=== PATIENT | male | born 1975 | race American Indian/Alaskan Native ===

== ENCOUNTER 2019-06-24 08:30 | Emergency (ER) | payer OTHER ==
[~2019-06-24] VITALS: Ht 177.8 cm; Wt 76.2 kg
[~2019-06-24 08:30] MED LIST: BUSPIRONE HCL15 MG PO; CRUTCH1 EACH; NAPROSYN500 MG PO; RISPERDAL1 MG PO
[2019-06-24] MEDS ORDERED: WELLBUTRIN SR150 MG PO (08:50)
== END 2019-06-24 09:52 | disposition home or self-care (01) ==
LOC: ED 08:30
DX: Z00.8 Encounter for other general examination (principal); F17.200 Nicotine dependence, unspecified, uncomplicated; F32.9 Major depressive disorder, single episode, unspecified; F20.9 Schizophrenia, unspecified; Z91.018 Allergy to other foods; Z79.899 Other long term (current) drug therapy
CPT/HCPCS: 80053; 80176; 81001; 84443; 85025; 99284; G0480

== ENCOUNTER 2025-02-16 05:24 | Emergency (ER) | payer OTHER ==
[~2025-02-16] VITALS: Ht 177.8 cm; Wt 85.0 kg
[~2025-02-16 05:24] MED LIST changes: +WELLBUTRIN SR150 MG PO
[2025-02-16] MEDS ORDERED: THIAMINE HCL 200 MG/2 ML VIAL IV ONE (05:45)
[2025-02-16] MEDS ORDERED: LACTATED RINGER'S 1,000 ML IV ONE (05:45)
[2025-02-16] MEDS ORDERED: FOLIC ACID 1 MG/0.2 ML ML IV ONE (05:45)
[2025-02-16] MEDS ORDERED: FAMOTIDINE 20 MG/ 2 ML VIAL IV ONE (05:45)
[2025-02-16] MEDS ORDERED: ondansetron HCL 4 MG/2 ML VIAL IV ONE (05:45)
[2025-02-16 05:51] LABS: BASOPHILS 1.4 % (0-2); EOSINOPHILS 3.2 % (0-6); HEMATOCRIT 41.9 % (35.0-50.0); HEMOGLOBIN 14.6 g/dL (12.0-18.0); LYMPHOCYTES 13.3 % (24-44); MCH 32.1 (27-36); MCV 91.8 fl (81-99); MONOCYTES 10.6 % (0-12); NEUTROPHILS 71.5 % (39-80); PLATELET COUNT 302 K/uL (140-440); RBC 4.56 M/ul (4.3-5.7); RDW 13.7 (10.5-15.0)
[2025-02-16 06:09] LABS: ALBUMIN 3.3 g/dL (3.4-5.0); ALBUMIN/GLOBULIN RATIO 0.92 (1.1-2.4); ANION GAP 10.2 (7-21); BILIRUBIN, TOTAL 0.4 mg/dL (0.2-1.0); CALCIUM 8.1 mg/dL (8.5-10.1); CREATININE, SERUM 1.2 mg/dL (0.70-1.30); MAGNESIUM 2.4 mg/dL (1.8-2.4); POTASSIUM 3.2 mmol/L (3.5-5.1); PROTEIN, TOTAL 6.9 g/dL (6.4-8.2)
[2025-02-16 06:14] LABS: INR 1.21 (0.80-1.30); PROTIME 14.6 Sec (11.2-14.2)
[2025-02-16] MEDS ORDERED: PEPCID20 MG PO (06:47)
[2025-02-16] MEDS ORDERED: SODIUM CHLORIDE 0.9% 1,000 ML IV ONE (07:30)
[2025-02-16 09:04] VITALS: BP 94/68
== END 2025-02-16 09:07 | disposition home or self-care (01) ==
LOC: ED 05:24
PROVIDERS: Internal Medicine
DX: F10.129 Alcohol abuse with intoxication, unspecified (principal); R10.12 Left upper quadrant pain; F17.200 Nicotine dependence, unspecified, uncomplicated; Z91.09 Other allergy status, other than to drugs and biological substances
CPT/HCPCS: 36415; 51798; 71045; 80053; 80307; 83690; 83735; 85025; 85610; 96361; 96374; 96375; 99284-25; G0480; J2405; J3411; J7030; J7121

== ENCOUNTER 2025-07-14 09:13 | Emergency (ER) | payer OTHER ==
[~2025-07-14] VITALS: Ht 177.8 cm; Wt 77.0 kg
[~2025-07-14 09:13] MED LIST changes: +PEPCID20 MG PO
[2025-07-14 09:45] LABS: CORONAVIRUS COVID-19 AG NEGATIVE (NEGATIVE)
[2025-07-14] MEDS ORDERED: ZITHROMAX250 MG PO (09:59)
[2025-07-14] MEDS ORDERED: AMOX TR-K CLV1 EAC1 PO ×2 (09:59→11:04)
[2025-07-14] MEDS ORDERED: AMOXICILLIN/CLAVULANATE K 875 MG TAB PO ONE (10:00)
[2025-07-14] MEDS ORDERED: AZITHROMYCIN 250 MG TAB PO ONE (10:00)
[2025-07-14] MEDS ORDERED: IBUPROFEN 600 MG TAB PO ONE (11:00)
[2025-07-14] MEDS ORDERED: ACETAMINOPHEN 500 MG TAB PO ONE (11:00)
[2025-07-14] MEDS ORDERED: AMOXICILLIN/CLAVULANATE K 875 MG HOME.PACK PO ONE (11:15)
[2025-07-14] MEDS ORDERED: AZITHROMYCIN 250 MG HOME.PACK PO ONE (11:15)
[2025-07-14 11:40] VITALS: BP 106/71
== END 2025-07-14 11:40 | disposition home or self-care (01) ==
LOC: ED 09:13
PROVIDERS: Emergency Medicine
DX: J18.9 Pneumonia, unspecified organism (principal); F17.200 Nicotine dependence, unspecified, uncomplicated; Z59.00 Homelessness unspecified; Z91.018 Allergy to other foods; Z79.899 Other long term (current) drug therapy
CPT/HCPCS: 36415; 71045; 87502; 99284-25; A9270; U0002